=== PATIENT | female | born 1950 | race Caucasian/White ===

== ENCOUNTER 2022-03-11 08:29 | Observation (INO) ==
[2022-03-11] MEDS ORDERED: Famotidine 20 MG TABLET PO ONE (08:30)
[2022-03-11] MEDS ORDERED: *HR* FentaNYL (PF) 100 MCG/2 ML VIAL ONE ×2 (08:42→11:04)
[2022-03-11] MEDS ORDERED: *HR* Propofol 200 MG/20 ML VIAL IVP ONE (08:42)
[2022-03-11] MEDS ORDERED: *HR* Rocuronium Bromide 50 MG/5 ML VIAL ONE (08:43)
[2022-03-11] MEDS ORDERED: Ondansetron 4 MG/2 ML VIAL ONE (08:43)
[2022-03-11] MEDS ORDERED: Lidocaine HCL 4 ML Topical Solution (Laryng-O-Jet Kit Sterile Pak) TP ONE (08:43)
[2022-03-11] MEDS ORDERED: *HR* Succinylcholine 200 MG/10 ML VIAL IVP ONE (08:43)
[2022-03-11] MEDS ORDERED: Lidocaine -MPF 2% 2 ML VIAL ONE (08:43)
[2022-03-11] MEDS ORDERED: *HR* Midazolam HCl 2 MG/2 ML VIAL ONE (08:43)
[2022-03-11] MEDS ORDERED: Ondansetron 4 MG/2 ML VIAL IVP PRN ×2 (09:00→15:30)
[2022-03-11] MEDS ORDERED: *HR* FentaNYL (PF) 100 MCG/2 ML VIAL IVP PRN (09:00)
[2022-03-11] MEDS ORDERED: *HR* HYDROmorphone PF 0.5 MG/0.5 ML SYRINGE IVP PRN (09:00)
[2022-03-11] MEDS ORDERED: Acetaminophen IV 1,000 MG/100 ML BAG IVPB ONE (09:32)
[2022-03-11] MEDS ORDERED: ROPIVACAINE/PF/NS 0.25% 1 EACH SYRINGE INTRAART ONE (09:38)
[2022-03-11] MEDS ORDERED: CeFAZolin Syr 2,000MG/20 ML 2,000 MG/20 ML SYRINGE IVPB ONE (09:55)
[2022-03-11] MEDS ORDERED: Ringers Solution, Lactated 1,000 ML IVC SCH ×2 (10:00→15:30)
[2022-03-11] MEDS ORDERED: Vancomycin 1,000 MG VIAL ONE (10:12)
[2022-03-11] MEDS ORDERED: TOTAL JOINT MIXTURE (100ML) INTRAART ONE (10:30)
[2022-03-11] MEDS ORDERED: Povidone-Iodine 45 ML, Sodium Chloride IRRigation 1,000 ML IR ONE (10:30)
[2022-03-11] MEDS ORDERED: Tranexamic Acid 1,000 MG/10 ML VIAL ONE ×2 (10:50→12:38)
[2022-03-11] MEDS ORDERED: EPHEDrine 50 MG/ML VIAL ONE (10:59)
[2022-03-11] MEDS ORDERED: *HR* Remifentanil 1 MG VIAL IVP ONE (11:46)
[2022-03-11] MEDS ORDERED: Sugammadex Sodium 200 MG/2 ML VIAL IV ONE (12:17)
[2022-03-11] MEDS ORDERED: *HR* HYDROMORPHONE 2 MG/ML VIAL ONE (12:39)
[2022-03-11] MEDS ORDERED: Ketorolac 30 MG/ML VIAL IVP PRN (13:20)
[2022-03-11] MEDS ORDERED: *HR* Metoprolol 5 MG/5 ML VIAL IVP PRN (13:20)
[2022-03-11] MEDS ORDERED: *HR* OxyCODONE Immed Rel 5 MG TABLET PO PRN (15:30)
[2022-03-11] MEDS ORDERED: Naloxone 0.4 MG/ML INJ IVP PRN (15:30)
[2022-03-11] MEDS ORDERED: MOM Conc 10 ML UD.LIQ PO PRN (15:30)
[2022-03-11] MEDS ORDERED: *HR* Promethazine 25 MG/ML VIAL IM PRN (15:30)
[2022-03-11] MEDS ORDERED: Sennosides 8.6 MG TABLET PO PRN (15:30)
[2022-03-11] MEDS: Ascorbic Acid 500 MG TABLET PO SCH (16:28)
[2022-03-11] MEDS: Gabapentin 100 MG CAPSULE PO SCH ×2 (16:28→19:39)
[2022-03-11] MEDS: CeFAZolin 2 GM/120 ML BAG IVPB SCH (18:06)
[2022-03-11] MEDS: *HR* OxyCODONE Immed Rel 5 MG TABLET PO PRN (18:06)
[2022-03-11] MEDS ORDERED: Promethazine Syrup 6.25 MG/5 ML PO PRN (18:15)
[2022-03-11] MEDS: Apixaban 2.5 MG TABLET PO SCH (19:39)
[2022-03-12] MEDS: CeFAZolin 2 GM/120 ML BAG IVPB SCH (03:41)
[2022-03-12] MEDS: *HR* OxyCODONE Immed Rel 5 MG TABLET PO PRN ×4 (03:48→18:25)
[2022-03-12 08:37] LABS: Basophils % 0.2 %; Hematocrit 38.2 % (35.3-44.9); Hemoglobin 12.7 g/dL (11.5-15.4); Immature Granulocytes % 0.4 % (0-4); Lymphocytes # 1.2 K/mcL (0.6-4.6); Lymphocytes % 11.5 %; Mean Corpuscular HGB Conc 33.2 g/dL (31.6-35.5); Mean Corpuscular Hemoglobin 31.4 pg (28.0-33.3); Mean Corpuscular Volume 94.3 fL (83.0-100.0); Monocytes # 0.9 K/mcL (0.0-1.3); Monocytes % 8.3 %; Neutrophils # 8.5 K/mcL (1.6-8.9); Platelet Count 205 K/mcL (140-400); Red Blood Count 4.05 M/mcL (3.82-4.97); Red Cell Distribution Width 13.3 % (11.5-14.5); Segmented Neutrophils % 79.6 %; White Blood Count 10.7 K/mcL (4.3-11.1)
[2022-03-12] MEDS: Ascorbic Acid 500 MG TABLET PO SCH ×2 (08:40→16:35)
[2022-03-12] MEDS: Multivit/Ca/Min/Fe/FA 1 TAB TABLET PO SCH (08:40)
[2022-03-12] MEDS: Apixaban 2.5 MG TABLET PO SCH ×2 (08:40→21:19)
[2022-03-12] MEDS: Gabapentin 100 MG CAPSULE PO SCH ×3 (08:40→21:19)
[2022-03-12 08:58] LABS: BUN/Creatinine Ratio 20 (6-26); Blood Urea Nitrogen 12 mg/dL (8-23); Calcium 9.6 mg/dL (8.6-10.3); Carbon Dioxide 27 mEq/L (23-29); Chloride 104 mEq/L (98-107); Glucose 121 mg/dL (70-105); Osmolality,Calculated 287 (280-300); Potassium 4.2 mEq/L (3.5-5.1); Sodium 138 mEq/L (136-145); eGFR For African Americans > 60 (> 60); eGFR For Non-African Americans > 60 (> 60)
[2022-03-13 01:03] LABS: Basophils % 0.4 %; Eosinophils % 0.4 %; Hematocrit 34.9 % (35.3-44.9); Hemoglobin 11.4 g/dL (11.5-15.4); Immature Granulocytes % 0.4 % (0-4); Lymphocytes # 1.8 K/mcL (0.6-4.6); Lymphocytes % 20.7 %; Mean Corpuscular HGB Conc 32.7 g/dL (31.6-35.5); Mean Corpuscular Hemoglobin 31.6 pg (28.0-33.3); Mean Corpuscular Volume 96.7 fL (83.0-100.0); Mean Platelet Volume 10.7 fL (9.4-12.4); Monocytes % 11.6 %; Neutrophils # 5.7 K/mcL (1.6-8.9); Platelet Count 185 K/mcL (140-400); Red Blood Count 3.61 M/mcL (3.82-4.97); Red Cell Distribution Width 13.5 % (11.5-14.5); Segmented Neutrophils % 66.5 %; White Blood Count 8.6 K/mcL (4.3-11.1)
[2022-03-13 01:25] LABS: BUN/Creatinine Ratio 26 (6-26); Blood Urea Nitrogen 19 mg/dL (8-23); Calcium 8.8 mg/dL (8.6-10.3); Carbon Dioxide 28 mEq/L (23-29); Chloride 104 mEq/L (98-107); Glucose 129 mg/dL (70-105); Osmolality,Calculated 286 (280-300); Potassium 4.5 mEq/L (3.5-5.1); Sodium 136 mEq/L (136-145); eGFR For African Americans > 60 (> 60); eGFR For Non-African Americans > 60 (> 60)
[2022-03-13] MEDS: *HR* OxyCODONE Immed Rel 5 MG TABLET PO PRN ×4 (02:27→21:46)
[2022-03-13] MEDS: Apixaban 2.5 MG TABLET PO SCH ×2 (07:28→21:46)
[2022-03-13] MEDS: Ascorbic Acid 500 MG TABLET PO SCH ×2 (07:29→18:19)
[2022-03-13] MEDS: Gabapentin 100 MG CAPSULE PO SCH ×3 (07:29→21:46)
[2022-03-13] MEDS: Multivit/Ca/Min/Fe/FA 1 TAB TABLET PO SCH (07:31)
[2022-03-13] MEDS: polyethylene glycoL 3350 17 GM POWD.PACK PO PRN (14:42)
[2022-03-14] MEDS: *HR* OxyCODONE Immed Rel 5 MG TABLET PO PRN ×5 (02:13→20:36)
[2022-03-14] MEDS: Ascorbic Acid 500 MG TABLET PO SCH ×2 (08:47→16:39)
[2022-03-14] MEDS: Apixaban 2.5 MG TABLET PO SCH ×2 (08:47→20:28)
[2022-03-14] MEDS: Gabapentin 100 MG CAPSULE PO SCH ×3 (08:47→20:28)
[2022-03-14] MEDS: Multivit/Ca/Min/Fe/FA 1 TAB TABLET PO SCH (08:47)
[2022-03-14] MEDS: polyethylene glycoL 3350 17 GM POWD.PACK PO PRN (08:52)
[2022-03-14 15:27] LABS: Influenza A PCR Negative (Negative); Influenza B PCR Negative (Negative); Resp. Syncytial Virus PCR Negative (Negative)
[2022-03-14 15:32] LABS: SARS-CoV-2 by PCR (In House) Negative (Negative)
[2022-03-14 19:29] VITALS: BP 98/54; PULSE 83; TEMP 98.1; O2SAT 97
== END 2022-03-14 21:00 ==
LOC: 4WAOSI 08:29 → SDCAOSI 08:29 → 4WAOSI 14:29
PROVIDERS: ADMIT Orthopaedic Surgery; ATTEND Orthopaedic Surgery